=== PATIENT | female | born 1965 | race African-American/Black ===

== ENCOUNTER 2016-09-21 16:48 | Inpatient (IN) | payer MEDICAID ==
[~2016-09-21] VITALS: Ht 167.6 cm; Wt 122.5 kg
[2016-09-21 17:29] LABS: Basophils # (auto) 0 uL; Basophils % (auto) 0.6 % (0.0-2.0); Eosinophils # (auto) 0.1 uL; Eosinophils % (auto) 0.8 % (0.0-7.0); Hematocrit 46.2 % (36.0-46.0); Hemoglobin 15.2 g/dL (12.2-16.2); Lymphocytes # (auto) 2.9 uL; Mean Corpuscular Hemoglobin 28.8 pg (28.0-32.0); Mean Corpuscular Volume 87.4 fL (80.0-100.0); Mean Platelet Volume 8.6 fL (7.4-10.4); Monocytes # (auto) 0.3 uL; Monocytes % (auto) 4.7 % (0.0-12.0); Neutrophils # (auto) 3.6 uL; Neutrophils % (auto) 51.9 % (37.0-80.0); Platelet Count (auto) 261 10^3/uL (140-450); Red Cell Distribution Width 14.5 % (11.6-16.0); White Blood Cell 6.9 10^3/uL (4.4-10.8)
[2016-09-21 17:46] LABS: Albumin 3.7 g/dL (3.4-5.0); Anion Gap 12 (5-15); BUN/Creatinine Ratio 14.8; Blood Urea Nitrogen 13 mg/dL (7-18); Calcium 9.4 mg/dL (8.5-10.1); Carbon Dioxide 24 mmol/L (21-32); Chloride 108 mmol/L (98-107); GFR African American 87 mL/min; GFR Non-African American 72 mL/min; Glucose 288 mg/dL (74-106); Magnesium 2.1 mg/dL (1.6-2.6); Potassium 3.8 mmol/L (3.5-5.1); Sodium 144 mmol/L (136-145)
[2016-09-21 17:55] LABS: Alkaline Phosphatase 111 U/L (45-117); Aspartate Aminotransferase 29 U/L (15-37); Bilirubin, Total 0.3 mg/dL (0.2-1.0); Total Protein 7.6 g/dL (6.4-8.2)
[2016-09-21] MEDS ORDERED: ASPirin-EC 81 mg tab PO ONE (19:00)
[2016-09-21] MEDS ORDERED: ONDANSETRON HCL 4 MG/2 ML VIAL IV ONE (19:30)
[2016-09-21] MEDS ORDERED: MEPERIDINE HCL (25 MG/ML) 1ML VIAL IV ONE (19:30)
[2016-09-21] MEDS ORDERED: HYDROmorphone HCL 2 MG/ML VL IV ONE (19:45)
[2016-09-21 19:51] LABS: INR 0.96 (0.9-1.15); Prothrombin Time 10.4 sec (9.37-12.3)
[2016-09-21] MEDS ORDERED: SODIUM CHLORIDE 0.9% 1,000 ML IV SCH (19:55)
[2016-09-21] MEDS ORDERED: ACETAMINOPHEN 500 MG TAB PO PRN (20:00)
[2016-09-21] MEDS ORDERED: DEXTROSE (50%) 50ML SYRG IV PRN (20:00)
[2016-09-21] MEDS ORDERED: TEMAZEPAM 15 MG CAP PO PRN (20:00)
[2016-09-21] MEDS ORDERED: NITROGLYCERIN 0.4 MG SL TAB SL PRN (20:00)
[2016-09-21] MEDS ORDERED: CLOPIDOGREL BISULFATE 75 MG TAB PO ONE (20:00)
[2016-09-21] MEDS: METOPROLOL TARTRATE 25 MG TAB PO SCH ×3 (20:00→22:45)
[2016-09-21] MEDS ORDERED: HYDROcodone-ACET 5/325MG TAB PO PRN (20:00)
[2016-09-21] MEDS ORDERED: LACTULOSE 20Gm/30ML SOLN PO PRN (20:00)
[2016-09-21] MEDS ORDERED: PROCHLORPERAZINE EDISYLATE 5 MG/ML 2ML VIAL IV PRN (20:00)
[2016-09-21] MEDS ORDERED: LORazepam 0.5 MG TAB PO PRN (20:00)
[2016-09-21 20:27] VITALS: BP 156/105
[2016-09-21] MEDS ORDERED: ALBUTEROL SULF 2.5 MG/0.5ML(0.5%) NEB SOLN NEB PRN (20:30)
[2016-09-21] MEDS ORDERED: ASPirin 81 mg TAB PO ONE (20:30)
[2016-09-21] MEDS: DOXYCYCLINE HYC 100MG/250ML 250 ML IV SCH ×2 (21:30→22:00)
[2016-09-21] MEDS: ACCU-CHEK COMFORT CURVE STRIP VI SCH ×2 (21:30→23:38)
[2016-09-21] MEDS: InsuLIN REG 1unit/0.01ml Soln (100units/ml) SC SCH ×2 (21:36→23:38)
[2016-09-21 22:00] VITALS: BP 139/87
[2016-09-21] MEDS ORDERED: GABAPENTIN 300 MG CAP PO SCH (22:00)
[2016-09-21] MEDS ORDERED: ATORVASTATIN 20 MG TAB PO SCH (22:00)
[2016-09-21] MEDS: HYDROmorphone HCL 2 MG/ML VL IV PRN (22:35)
[2016-09-21 23:38] LABS: B-Type Natriuretic Peptide 15.5 pg/mL (0-100); Temperature: 20.8 C (20.0-25.0)
[2016-09-22] MEDS ORDERED: ALBUTEROL SULF 2.5 MG/0.5ML(0.5%) NEB SOLN NEB SCH
[2016-09-22] MEDS ORDERED: IPRATROPIUM BROM 0.5 MG/2.5ML INH SOL NEB SCH
[2016-09-22] MEDS ORDERED: POTA20IN2 IV (02:01)
[2016-09-22] MEDS ORDERED: ATOR40TA52 PO (02:01)
[2016-09-22] MEDS ORDERED: APIX5TAB OR (02:01)
[2016-09-22] MEDS ORDERED: GABA-494 PO (02:01)
[2016-09-22] MEDS ORDERED: NOR5T PO (02:01)
[2016-09-22] MEDS ORDERED: PANT1INJ3 IV (02:01)
[2016-09-22] MEDS ORDERED: IBU600T PO (02:01)
[2016-09-22] MEDS ORDERED: LOSA25TA9 PO (02:01)
[2016-09-22] MEDS ORDERED: MET50T GT (02:01)
[2016-09-22] MEDS ORDERED: CLON0.3T PO (02:01)
[2016-09-22] MEDS ORDERED: FURO40TA4 PO (02:01)
[2016-09-22] MEDS: HYDROmorphone HCL 2 MG/ML VL IV PRN (02:43)
[2016-09-22] MEDS ORDERED: ENOXAPARIN SOD 40 MG/0.4 ML SYRINGE SC SCH (10:00)
[2016-09-22] MEDS ORDERED: ASPirin 81 mg TAB PO SCH (10:00)
[2016-09-22] MEDS ORDERED: NITROGLYCERIN 0.2MG/HR TOPICAL PATCH TD SCH (10:00)
[2016-09-22] MEDS ORDERED: CLOPIDOGREL BISULFATE 75 MG TAB PO SCH (10:00)
[2016-09-22] MEDS ORDERED: PANTOPRAZOLE 40 MG TAB PO SCH (10:00)
[2016-09-28] MEDS ORDERED: APIXABAN 5 MG TAB PO SCH (22:00)
== END 2016-09-22 03:25 | disposition left against medical advice (07) | DRG 140 ==
LOC: ER 16:57 → TELE 16:58 → TELE-CENTR 22:00
PROVIDERS: ADMIT Internal Medicine; ATTEND Internal Medicine
DX: J44.1 Chronic obstructive pulmonary disease with (acute) exacerbation (principal); I11.0 Hypertensive heart disease with heart failure; I50.9 Heart failure, unspecified; E78.5 Hyperlipidemia, unspecified; M19.90 Unspecified osteoarthritis, unspecified site; E11.65 Type 2 diabetes mellitus with hyperglycemia; R00.0 Tachycardia, unspecified; I25.110 Atherosclerotic heart disease of native coronary artery with unstable angina pectoris; Z86.711 Personal history of pulmonary embolism; Z95.5 Presence of coronary angioplasty implant and graft; Z90.49 Acquired absence of other specified parts of digestive tract; I25.2 Old myocardial infarction; Z82.49 Family history of ischemic heart disease and other diseases of the circulatory system; Z88.5 Allergy status to narcotic agent; Z88.0 Allergy status to penicillin; Z88.8 Allergy status to other drugs, medicaments and biological substances; Z87.891 Personal history of nicotine dependence
CPT/HCPCS: 36415; 71020; 80053; 82550; 82962; 83036; 83735; 83880; 84443; 84484; 85025; 85379; 85610; 85652; 85730; 86141; 93005; 94640; 94761; 96361; 96374; 96375; J1815; J2405; J3490

== ENCOUNTER 2017-07-30 09:20 | Observation (INO) | payer MEDICAID ==
[~2017-07-30] VITALS: Ht 167.6 cm; Wt 66.9 kg
[~2017-07-30 09:20] MED LIST: APIX5TAB OR; ATOR40TA52 PO; CLON0.3T PO; FURO40TA4 PO; GABA100C9 PO; HYDR-4683 PO; IBU600T PO; LOSA25TA9 PO; MET50T GT; PANT1INJ3 IV; POTA20IN2 IV
[2017-07-30 10:01] LABS: Basophils # (auto) 0.1 uL; Eosinophils # (auto) 0.1 uL; Eosinophils % (auto) 2.1 % (0.0-7.0); Hematocrit 43.7 % (36.0-46.0); Hemoglobin 14.6 g/dL (12.2-16.2); Lymphocytes # (auto) 2.4 uL; Lymphocytes % (auto) 43.4 % (10.0-50.0); Mean Corpuscular Hemoglobin 29.9 pg (28.0-32.0); Mean Corpuscular Hgb Conc. 33.4 g/dL (32.0-36.0); Mean Corpuscular Volume 89.5 fL (80.0-100.0); Monocytes # (auto) 0.3 uL; Monocytes % (auto) 5.5 % (0.0-12.0); Neutrophils # (auto) 2.7 uL; Nucleated Red Blood Cells % 0.6 %; Platelet Count (auto) 216 10^3/uL (140-450); Red Blood Cells 4.88 10^6/uL (4.0-5.20); Red Cell Distribution Width 15.1 % (11.8-14.3); White Blood Cell 5.6 10^3/uL (4.4-10.8)
[2017-07-30 10:23] LABS: Alanine Aminotransferase 33 U/L (13-56); Albumin 3.5 g/dL (3.4-5.0); Amylase 27 U/L (25-115); Anion Gap 12 (5-15); Aspartate Aminotransferase 23 U/L (15-37); BUN/Creatinine Ratio 12.4; Blood Urea Nitrogen 11 mg/dL (7-18); Calcium 9.5 mg/dL (8.5-10.1); Carbon Dioxide 23 mmol/L (21-32); Chloride 105 mmol/L (98-107); GFR African American 86 mL/min; GFR Non-African American 71 mL/min; Glucose 370 mg/dL (74-106); Lipase 206 U/L (73-393); Magnesium 2.1 mg/dL (1.6-2.6); Potassium 3.7 mmol/L (3.5-5.1); Sodium 140 mmol/L (136-145)
[2017-07-30 10:29] LABS: Alkaline Phosphatase 103 U/L (45-117); Bilirubin, Total 0.3 mg/dL (0.2-1.0); Total Protein 7.1 g/dL (6.4-8.2)
[2017-07-30] MEDS ORDERED: SODIUM CHLORIDE 0.9% 1,000 ML IVB ONE (14:56)
[2017-07-30] MEDS ORDERED: ONDANSETRON HCL 4 MG/2 ML VIAL IV ONE (15:00)
[2017-07-30] MEDS ORDERED: MEPERIDINE HCL (25 MG/ML) 1ML VIAL IV ONE (15:15)
[2017-07-30 17:31] VITALS: BP 142/94
== END 2017-07-30 19:08 | disposition left against medical advice (07) | DRG 251 ==
LOC: ER 09:20 → OVERFLOW 14:58 → ER 19:08
PROVIDERS: ADMIT Family Medicine; ATTEND Family Medicine
DX: R10.9 Unspecified abdominal pain (principal); I10 Essential (primary) hypertension; K59.00 Constipation, unspecified; E11.9 Type 2 diabetes mellitus without complications; K21.9 Gastro-esophageal reflux disease without esophagitis; E78.5 Hyperlipidemia, unspecified; F17.210 Nicotine dependence, cigarettes, uncomplicated; Z90.49 Acquired absence of other specified parts of digestive tract; Z79.899 Other long term (current) drug therapy
CPT/HCPCS: 36415; 71046; 74176; 80053; 82150; 83690; 83735; 84484; 85025; 93005; 96361; 96374; 96375; 99285; G0378; J2175; J2405; J7030

== ENCOUNTER 2019-01-11 10:36 | Emergency (ER) | payer MEDICAID ==
[~2019-01-11] VITALS: Ht 167.6 cm; Wt 122.5 kg
[2019-01-11 11:35] LABS: Basophils # (auto) 0 uL; Basophils % (auto) 0.7 % (0.0-2.0); Eosinophils # (auto) 0 uL; Eosinophils % (auto) 0.7 % (0.0-7.0); Hemoglobin 14.4 g/dL (12.2-16.2); Lymphocytes # (auto) 2.3 uL; Lymphocytes % (auto) 47.9 % (10.0-50.0); Mean Corpuscular Hemoglobin 30.3 pg (28.0-32.0); Mean Corpuscular Hgb Conc. 33.6 g/dL (32.0-36.0); Mean Corpuscular Volume 90.2 fL (80.0-100.0); Monocytes # (auto) 0.3 uL; Monocytes % (auto) 6.2 % (0.0-12.0); Neutrophils # (auto) 2.1 uL; Neutrophils % (auto) 44.5 % (37.0-80.0); Nucleated Red Blood Cells % 0.1 %; Platelet Count (auto) 144 10^3/uL (140-450); Red Blood Cells 4.76 10^6/uL (4.0-5.20); Red Cell Distribution Width 14.5 % (11.8-14.3); White Blood Cell 4.8 10^3/uL (4.4-10.8)
[2019-01-11 11:51] LABS: INR 0.93 (0.9-1.15); Partial Thromboplastin Time 28.5 sec (23.64-32.05)
[2019-01-11 11:55] LABS: Alanine Aminotransferase 72 U/L (13-56); Albumin 3.1 g/dL (3.4-5.0); Anion Gap 5 (5-15); Aspartate Aminotransferase 67 U/L (15-37); BUN/Creatinine Ratio 9.7; Blood Urea Nitrogen 9 mg/dL (7-18); Carbon Dioxide 29 mmol/L (21-32); Chloride 107 mmol/L (98-107); GFR African American 81 mL/min; GFR Non-African American 67 mL/min; Glucose 305 mg/dL (74-106); Potassium 3.8 mmol/L (3.5-5.1); Sodium 141 mmol/L (136-145)
[2019-01-11 12:00] LABS: Alkaline Phosphatase 102 U/L (45-117); Bilirubin, Total 0.3 mg/dL (0.2-1.0); Total Protein 7.4 g/dL (6.4-8.2)
[2019-01-11] MEDS ORDERED: FUROSEMIDE 40 MG/4 ML VIAL IV ONE (12:00)
[2019-01-11] MEDS ORDERED: KETOROLAC TROMETH 15 mg/ml 1ML VL IV ONE (12:00)
[2019-01-11 12:35] VITALS: BP 121/77
== END 2019-01-11 13:23 | disposition left against medical advice (07) ==
LOC: ER 10:36
DX: I11.0 Hypertensive heart disease with heart failure (principal); I50.9 Heart failure, unspecified; E11.65 Type 2 diabetes mellitus with hyperglycemia; J45.909 Unspecified asthma, uncomplicated; K21.9 Gastro-esophageal reflux disease without esophagitis; E78.00 Pure hypercholesterolemia, unspecified; I25.2 Old myocardial infarction; F17.210 Nicotine dependence, cigarettes, uncomplicated; Z98.61 Coronary angioplasty status
CPT/HCPCS: 36415; 71045; 80053; 83880; 84484; 85025; 85610; 85730; 93005; 94761; 99284; J1940

== ENCOUNTER → 2019-01-11 | Outpatient (CLI) | payer MEDICAID ==
[~2019-01-11] MED LIST changes: -HYDR-4683 PO; +HYDR-4833 PO; +LOSA25TA38 PO; -LOSA25TA9 PO
--- NOTE | 2019-01-11 10:20 | NUR ---
Pt scheduled for preop in lab tester for procedure on 01-13-19. Pt arrived in wheelchair, wearing a mask stating "I think I have pneumonia". I asked pt if she wanted to cancel her procedure and if she needed to be seen in the ER. Pt denied and wanted to continue with the preop. Pt was able to answer questions appropriately but as the preop continued, noticed to get increased shortness of breath on exertion, coughing and wheezing after only answering a few words. After multiple times asking pt if she wanted to stop the preop and go to the ER, she finally stated "yes, I should go get seen in the ER, but I want to finish the preop first". After completing the preop, pt was taken to ER triage via wheelchair without incident. Dr. Beltran notified of pt's symptoms and that she was taken to the ER.
== END | disposition home or self-care (01) ==
LOC: CATH 09:00 → EDSTATUS 01-13 10:53
PROVIDERS: ATTEND Internal Medicine
DX: Z01.818 Encounter for other preprocedural examination (principal); R07.9 Chest pain, unspecified

== ENCOUNTER 2019-02-16 07:06 | Day surgery (SDC) | payer MEDICAID ==
[2019-02-16] MEDS ORDERED: fentaNYL CITRATE 100 MCG/2 ML VL ONE (08:05)
[2019-02-16] MEDS ORDERED: diphenhdrAMINE HCL 50 MG/1 ML VL ONE (08:05)
[2019-02-16] MEDS ORDERED: VERAPAMIL 2.5MG/ML INJ 2ML VIAL IV ONE (08:05)
[2019-02-16] MEDS ORDERED: methylPREDNISolone SOD SUCC 125 MG/2 ML VL ONE (08:05)
[2019-02-16] MEDS ORDERED: MIDAZOLAM HCL 1MG/1ML-2 ML VIAL ONE ×2 (08:05→08:35)
[2019-02-16] MEDS ORDERED: LIDOCAINE 2%HCL (LOCAL ANESTH.) INJ 20ML MDV ONE (08:06)
[2019-02-16] MEDS ORDERED: FAMOTIDINE (10MG/ML) 2ML VL IV ONE (08:10)
[2019-02-16] MEDS ORDERED: IODIXANOL 320MG/ML 100ML BTL IV ONE (08:16)
[2019-02-16] MEDS ORDERED: HEPARIN SODIUM (PORCINE) 5000 UNITS/ML 1ML VIAL ONE (08:41)
[2019-02-16] MEDS ORDERED: ACETAMINOPHEN 500 MG TAB PO PRN (09:15)
[2019-02-16] MEDS ORDERED: ONDANSETRON HCL 4 MG/2 ML VIAL IV PRN (09:15)
--- NOTE | 2019-02-16 10:20 | NUR ---
Patient Liz Slaughter came in on 02/16/19 for a [facility] with Dr. Beltran, following the procedure while recovering Mrs. Slaughter suddenly said she needed to leave because she had a Hematology appointment. Patient had her right radial artery accessed for the procedure and came out with a TR band that holds pressure over the artery so the patient does not bleed out and gives the artery time to stop bleeding. TR band was holding approximately 10mls of air, this air is remove slowly 2mls at a time in 10-15minute increments following an hour of recovery. I was going to remove the first 2mls, when suddenly the patient said "take off the band right now I have to leave to a 1030 Hematology appointment that I can't miss." I explained that it was to soon to remove the band and that she could potentially bleed out. She said "I don't care." I offered to call the office she had an appointment at to explain that the patient would be running late due to her having a procedure done, I also said that Dr. Beltran could also call her hematology doctor if need be. She said " no, take this band off right now and I want to speak to your charge nurse or cutting room supervisor." At this time I notified Dr. Beltran and our Instructional Developer Billie. I came back to bedside with co-band and gauze, the patient signed an AMA form and discharge papers before I removed the TR band. I held pressure for a few second and rapped the wrist with co-band immediately because the patient was started taking everything off. Patient was very agitated by this time and raised her voice telling me to take her IV out now. I removed the IV, visualizing tip of IV catheter. Billie came out to bedside and speak to the patient, also explaining the risk of her leaving. While the patient was trying to get dressed the radial artery began to bleed because the patient pulled off her co-band dressing that was holding pressure on the artery. I started to hold pressure over the artery to stop the bleeding, patient allowed me to do so. I explained again that this is why we wanted to keep her here longer to help prevent possible bleeding. She said she understood, but she wanted to leave anyway. Her Otto was at bedside and stated that he wanted her to stay longer. He was also unable to change her mind. I redressed the right wrist with gauze and co-band after holding radial pressure for 5 minutes. I helped patient get dressed, no bleeding seen at this time on the dressing. I gave her written and verbal instructions and emphasized holding blood thinners until tomorrow 02/17/19.
== END 2019-02-16 10:20 | disposition home or self-care (01) ==
LOC: CATH 07:06
PROVIDERS: ATTEND Internal Medicine
DX: I25.10 Atherosclerotic heart disease of native coronary artery without angina pectoris (principal); I11.0 Hypertensive heart disease with heart failure; I50.9 Heart failure, unspecified; I25.2 Old myocardial infarction; E78.00 Pure hypercholesterolemia, unspecified; E11.9 Type 2 diabetes mellitus without complications; E78.5 Hyperlipidemia, unspecified; J43.9 Emphysema, unspecified; Z79.899 Other long term (current) drug therapy; Z98.890 Other specified postprocedural states; Z88.0 Allergy status to penicillin; Z88.5 Allergy status to narcotic agent; Z91.041 Radiographic dye allergy status; Z87.891 Personal history of nicotine dependence; Z88.8 Allergy status to other drugs, medicaments and biological substances
CPT/HCPCS: 93005; 93454; C1760; C1769; C1887; C1894; J1200; J1644; J2250; J2930; J3010; J3490; J7030; Q9967; 99152; 99153

== ENCOUNTER 2024-01-17 17:27 | Emergency (ER) | payer MEDICAID, OTHER ==
[~2024-01-17] VITALS: Ht 167.6 cm; Wt 113.5 kg
[~2024-01-17 17:27] MED LIST changes: +GABA-1308 PO; -GABA100C9 PO; -IBU600T PO; +IBUP1TAB5 PO; +LOSA-533 PO; -LOSA25TA38 PO
[2024-01-17] MEDS: SODIUM CHLORIDE 0.9% 1,000 ML IV ONE (18:15)
[2024-01-17 18:25] VITALS: PULSE 83; RESP 19; TEMP 98.1; O2SAT 98
[2024-01-17 18:32] LABS: Alanine Aminotransferase 15 U/L (7-40); Albumin 4.1 g/dL (3.2-4.8); Alkaline Phosphatase 73 U/L (46-116); Anion Gap 10 (5-15); Aspartate Aminotransferase 20 U/L (13-40); BUN/Creatinine Ratio 13.9 (10.0-20.0); Bilirubin, Total 0.3 mg/dL (0.2-1.0); Blood Urea Nitrogen 14 mg/dL (9-23); Calcium 9.6 mg/dL (8.7-10.4); Carbon Dioxide 24 mmol/L (20-30); Chloride 109 mmol/L (98-107); Glucose 130 mg/dL (74-106); Lipase 112 U/L (12-53); Potassium 3.6 mmol/L (3.5-5.1); Sodium 143 mmol/L (136-145); Total Protein 6.4 g/dL (5.7-8.2)
[2024-01-17 18:33] LABS: Basophils # (auto) 0 10 ^3/uL (0-0.2); Eosinophils # (auto) 0.1 10 ^3/uL (0-0.8); Lymphocytes # (auto) 3.5 10 ^3/uL (0.4-5.4)
[2024-01-17 18:42] LABS: Basophils % (auto) 0.5 % (0.0-2.0); Hematocrit 41.5 % (36.0-46.0); Lymphocytes % (auto) 47.8 % (10.0-50.0); Mean Corpuscular Hemoglobin 29.9 pg (28.0-32.0); Mean Corpuscular Hgb Conc. 33.7 g/dL (32.0-36.0); Mean Corpuscular Volume 88.7 fL (80.0-100.0); Monocytes # (auto) 0.4 10 ^3/uL (0-1.3); Monocytes % (auto) 5.8 % (0.0-12.0); Neutrophils # (auto) 3.3 10 ^3/uL (1.6-8.6); Neutrophils % (auto) 44.9 % (37.0-80.0); Nucleated Red Blood Cells % 0.6 %; Red Blood Cells 4.68 10^6/uL (4.0-5.20); Red Cell Distribution Width 15.1 % (11.8-14.3); White Blood Cell 7.3 10^3/uL (4.4-10.8)
[2024-01-17 19:30] VITALS: PULSE 79; RESP 15; O2SAT 95
[2024-01-17] MEDS: IOHEXOL 300 MG/ML 100ML BOTTLE IJ ONE (20:21)
[2024-01-17] MEDS: PANTOPRAZOLE 40 MG/10 ML VIAL INJ IV ONE (21:21)
[2024-01-17] MEDS: MORPHINE SULFATE 4 MG/ML SYR/VIAL IV ONE (21:23)
[2024-01-17] MEDS: ONDANSETRON HCL 4 MG/2 ML VIAL IV ONE (21:23)
[2024-01-17 22:25] LABS: Urine Bacteria None Seen /hpf (None Seen)
[2024-01-17 22:30] VITALS: BP 147/84; PULSE 79; RESP 17; O2SAT 95
[2024-01-17 22:37] LABS: Urine Blood 2+ /uL (Negative); Urine Clarity Clear (Clear); Urine Color Light-Yellow (Yellow); Urine Protein, UAD TRACE (Negative); Urine Specific Gravity 1.012 (1.001-1.035); Urine Urobilinogen Normal (Negative); Urine WBC 1 /hpf (0 - 5); Urine pH 5.5 (5.0-9.0)
== END 2024-01-18 00:55 | disposition home or self-care (01) ==
LOC: ER 17:27
DX: R33.9 Retention of urine, unspecified (principal); R31.9 Hematuria, unspecified; R10.30 Lower abdominal pain, unspecified; I10 Essential (primary) hypertension; E78.5 Hyperlipidemia, unspecified; I25.2 Old myocardial infarction; K21.9 Gastro-esophageal reflux disease without esophagitis; E11.9 Type 2 diabetes mellitus without complications; J45.909 Unspecified asthma, uncomplicated; F17.210 Nicotine dependence, cigarettes, uncomplicated; Z98.890 Other specified postprocedural states; Z79.899 Other long term (current) drug therapy; Z91.041 Radiographic dye allergy status; Z88.0 Allergy status to penicillin; Z88.8 Allergy status to other drugs, medicaments and biological substances
CPT/HCPCS: 36415; 71045; 74176; 80053; 81001; 83605; 83690; 84484; 85025; 87086; 93005; 96374; 96375; 99285; J2270; J2405; J2470